=== PATIENT | female | born 1965 | race Caucasian/White ===

== ENCOUNTER 2021-08-21 16:30 | Emergency (ER) | payer MEDICAID, OTHER ==
[~2021-08-21] VITALS: Ht 162.6 cm; Wt 63.5 kg
[2021-08-21 17:47] VITALS: BP 155/75
[2021-08-21] MEDS ORDERED: LIDOCAINE 2% (LOCAL ANESTH.) PF 5ml SDV ONE (17:47)
[2021-08-21] MEDS ORDERED: NAPR500T31 PO (18:15)
[2021-08-21] MEDS ORDERED: CIPR-173 PO (18:15)
[2021-08-21] MEDS ORDERED: IBUPROFEN 600 MG TAB PO ONE (18:15)
== END 2021-08-21 18:22 | disposition home or self-care (01) ==
LOC: ER 16:30
DX: S61.412A Laceration without foreign body of left hand, initial encounter (principal); S51.812A Laceration without foreign body of left forearm, initial encounter; S61.452A Open bite of left hand, initial encounter; F17.210 Nicotine dependence, cigarettes, uncomplicated; W54.0XXA Bitten by dog, initial encounter; Y93.89 Activity, other specified; Y92.89 Other specified places as the place of occurrence of the external cause; Y99.8 Other external cause status
CPT/HCPCS: 12002; 99283; J2001